=== PATIENT | male | born 1965 | race Caucasian/White ===

== ENCOUNTER 2022-09-29 19:37 | Inpatient (IN) | payer OTHER ==
[2022-09-29] MEDS ORDERED: solu-MEDROL 125 MG, Sterile H2O 10 ml 2 ML IV ONE ×2 (19:53)
[2022-09-29] MEDS ORDERED: DUONEB 0.5-3 MG/3 ml Neb IH ONE ×3 (19:53→23:28)
--- NOTE | 2022-09-29 19:59 | ERPHSYRPT ---
- History of Present Illness Time Seen by Provider: 09/29/22 19:43 Source: patient Exam Limitations: no limitations Physician History: 57 years old male with history of COPD/tobacco abuse recently finished course of antibiotics and steroid presented in the ER with worsening cough and shortness of breath for the last few days. Patient reported his symptoms been going on for last 3 weeks and got worse in last 2 days after finishing antibiotics. Reports cough productive of clear to yellow sputum moderate in amount. Wheezing all over, shortness of breath gets worse with activity and some partial relief with resting. No chest pain but tightness. No fever or chills reported. Patient was oxygen to 86-88% on room air. Placed on 2 L oxygen and currently in mid 90s. Timing/Duration: week(s) (3), gradual onset, worse Severity of Dyspnea-Max: moderate Severity of Dyspnea-Current: moderate Modifying Factors: Improves With: oxygen, rest. Worsens With: coughing, e xertion Associated Symptoms: cough, chest pain/discomfort, productive cough, tightness, No fever Allergies/Adverse Reactions: No Known Drug Allergies Allergy (Unverified 09/29/22 19:43) - Review of Systems Constitutional: No Symptoms Eyes: No Symptoms Ears, Nose, & Throat: No Symptoms Respiratory: Cough, Dyspnea, Wheezing Cardiac: Chest Pain Abdominal/Gastrointestinal: No Symptoms Genitourinary Symptoms: No Symptoms Musculoskeletal: No Symptoms Skin: No Symptoms Neurological: No Symptoms Endocrine: No Symptoms Hematologic/Lymphatic: No Symptoms Immunological/Allergic: No Symptoms - Nursing Vital Signs Nursing Vital Signs: Initial Vital Signs Temperature 96.6 F 09/29/22 19:48 Pulse Rate 89 09/29/22 19:48 Respiratory Rate 30 H 09/29/22 19:48 Blood Pressure 158/94 09/29/22 19:48 O2 Sat by Pulse Oximetry 96 09/29/22 19:48 Pain Scale Pain Intensity 4 - Physical Exam General Appearance: mild distress, alert, anxiety Eye Exam: PERRL/EOMI, eyes nml inspection Ears, Nose, Throat Exam: hearing grossly normal, normal ENT inspection, normal pharynx Neck Exam: normal inspection, non-tender, supple, full range of motion Respiratory Exam: respiratory distress, diminished breath sounds, accessory muscle use, rhonchi, wheezing Cardiovascular/Chest Exam: normal heart sounds, regular rate/rhythm Abdominal/Gastrointestinal Exam: soft Extremity Exam: non-tender, normal range of motion Neurologic Exam: alert, oriented x 3, cooperative Skin Exam: normal color SpO2 Interpretation: O2 applied SpO2: 96 O2 Delivery: Nasal Cannula - Course EKG Interpreted by Me: RATE ([id number]), Sinus Rhythm, NORMAL AXIS, NORMAL INTERVALS, NORMAL QRS, Other (Nonspecific T wave changes) Ordered Tests: Active Orders 24 hr Category Date Time Status Wood Cutter STAT Care 09/29/22 19:54 Active EKG-ER Only STAT Care 09/29/22 19:53 Active IV Insertion STAT Care 09/29/22 19:53 Active Pulse Oximetry (ED) STAT Care 09/29/22 19:53 Active CHEST 1 VIEW (PORTABLE) Stat Exams 09/29/22 19:54 Completed BLOOD CULTURE Stat Lab 09/29/22 20:30 Received CBC W DIFF Stat Lab 09/29/22 20:15 Completed CMP Stat Lab 09/29/22 20:15 Completed Lactic Acid Stat Lab 09/29/22 20:20 Completed MAGNESIUM Stat Lab 09/29/22 20:15 Completed NT PRO BNPII Stat Lab 09/29/22 20:15 Completed TROPONIN Q4H Lab 09/29/22 20:15 Completed TROPONIN Q4H Lab 09/30/22 00:00 Ordered TROPONIN Q4H Lab 09/30/22 04:00 Ordered Respiratory Therapy Assessment DAILY RT 09/29/22 20:04 Active Transfer Order Routine Transfer 09/29/22 Ordered Medication Summary Generic Name Dose Route Start Last Admin Trade Name Freq PRN Reason Stop Dose Admin Albuterol/Ipratropium 3 ml 09/29/22 23:00 09/29/22 23:33 Ipratropium/Albuterol Sulfate 3 Ml Ampul.Neb 10/29/22 22:59 3 ml Q4HRT GHAZAL Administration Discontinued Medications Generic Name Dose Route Start Last Admin Trade Name Freq PRN Reason Stop Dose Admin Albuterol/Ipratropium 3 ml 09/29/22 19:53 09/29/22 19:55 Ipratropium/Albuterol Sulfate 3 Ml Ampul.Neb IH 09/29/22 19:54 3 ml STAT ONE Administration Albuterol/Ipratropium Confirm 09/29/22 19:53 Ipratropium/Albuterol Sulfate 3 Ml Ampul.Neb Administered 09/29/22 19:54 Dose 3 ml IH .STK-MED ONE Aspirin 324 mg 09/29/22 21:16 09/29/22 21:31 Aspirin 81 Mg Tab.Chew PO 09/29/22 21:17 324 mg STAT ONE Administration Methylprednisolone Sodium 0 mg 09/29/22 19:53 09/29/22 20:01 Succinate 125 mg/ Sterile IV 09/29/22 19:54 125 mg Water 2 ml STAT ONE Administration Azithromycin 500 mg in 250 mls @ 250 mls/hr 09/29/22 21:03 09/29/22 22:32 Zithromax 500 Mg/ 250 Ml Nacl Premix IV 09/29/22 22:02 Infused STAT STA Infusion Ceftriaxone Sodium/Dextrose 2 g in 50 mls @ 100 mls/hr 09/29/22 21:03 09/29/22 21:51 Rocephin 2 Gm-D5w 50ml Bag IV 09/29/22 21:32 Infused STAT STA Infusion Ceftriaxone Sodium/Dextrose Confirm 09/29/22 21:05 Rocephin 2 Gm-D5w 50ml Bag Administered 09/29/22 21:06 Dose 2 g in 50 mls @ ud IV .STK-MED ONE Azithromycin Confirm 09/29/22 21:12 Zithromax 500 Mg/ 250 Ml Nacl Premix Administered 09/29/22 21:13 Dose 500 mg in 250 mls @ ud IV .STK-MED ONE Methylprednisolone Sodium Succinate Confirm 09/29/22 20:00 Methylprednis Sod Succ 125 Mg/2 Ml Vial Administered 09/29/22 20:01 Dose 125 mg .ROUTE .STK-MED ONE Morphine Sulfate 4 mg 09/29/22 21:17 09/29/22 21:31 Morphine Sulfate 4 Mg/Ml Injection IV 09/29/22 21:18 4 mg STAT ONE Administration Morphine Sulfate Confirm 09/29/22 21:30 Morphine Sulfate 4 Mg/Ml Injection Administered 09/29/22 21:31 Dose 4 mg .ROUTE .STK-MED ONE Ondansetron HCl 4 mg 09/29/22 21:17 09/29/22 21:31 Ondansetron Hcl 4 Mg/2 Ml Vial IV 09/29/22 21:18 4 mg STAT ONE Administration Ondansetron HCl Confirm 09/29/22 21:30 Ondansetron Hcl 4 Mg/2 Ml Vial Administered 09/29/22 21:31 Dose 4 mg .ROUTE .STK-MED ONE Sterile Water Confirm 09/29/22 20:00 Water For Injection,Sterile 10 Ml Vial Administered 09/29/22 20:01 Dose 10 ml IJ .STK-MED ONE Lab/Rad Data: Laboratory Result Diagrams 09/29/22 20:15 09/29/22 20:15 Laboratory Results 09/29/22 09/29/22 09/29/22 Range/Units 20:30 20:20 20:15 WBC (4.0-10.5) x10^3/uL RBC (4.1-5.6) x10^6/uL Hgb (12.5-18.0) g/dL Hct (42-50) % MCV (78-100) fL MCH (26-32) pg MCHC (32-36) g/dL RDW (11.5-14.0) % Plt Count (150-450) x10^3/uL MPV (7.5-11.0) fL Gran % (36.0-66.0) % Immature Gran % (Auto) (0.00-0.4) % Nucleat RBC Rel Count (0.00-0.1) % Eos # (Auto) (0-0.5) x10^3/uL Immature Gran # (Auto) (0.00-0.03) x10^3u/L Absolute Lymphs (auto) (1.0-4.6) x10^3/uL Absolute Monos (auto) (0.0-1.3) x10^3/uL Absolute Nucleated RBC (0.00-0.01) x10^3u/L Lymphocytes % (24.0-44.0) % Monocytes % (0.0-12.0) % Eosinophils % (0.00-5.0) % Basophils % (0.0-0.4) % Absolute Granulocytes (1.4-6.9) x10^3/uL Basophils # (0-0.4) x10^3/uL Sodium (137-145) mmol/L Potassium (3.5-5.1) mmol/L Chloride (98-107) mmol/L Carbon Dioxide (22-30) mmol/L Anion Gap (5-15) MEQ/L BUN (9-20) mg/dL Creatinine (0.66-1.25) mg/dL Estimated GFR ML/MIN Glucose (74-106) mg/dL Lactic Acid 1.1 (0.4-2.0) Calcium (8.4-10.2) mg/dL Magnesium (1.6-2.3) mg/dL Total Bilirubin (0.2-1.3) mg/dL AST (17-59) U/L ALT (0-50) U/L Alkaline Phosphatase (38-126) U/L Troponin I (0.000-0.034) ng/mL NT-Pro-B Natriuret Pep 153 (<300) pg/mL Serum Total Protein (6.3-8.2) g/dL Albumin (3.5-5.0) g/dL Influenza Type A Ag NEGATIVE (NEGATIVE) Influenza Type B Ag NEGATIVE (NEGATIVE) RSV (PCR) NEGATIVE (NEGATIVE) SARS-CoV-2 (PCR) NEGATIVE (NEGATIVE) 09/29/22 09/29/22 09/29/22 Range/Units 20:15 20:15 20:15 WBC 13.2 H (4.0-10.5) x10^3/uL RBC 4.75 (4.1-5.6) x10^6/uL Hgb 14.9 (12.5-18.0) g/dL Hct 45.3 (42-50) % MCV 95.4 (78-100) fL MCH 31.4 (26-32) pg MCHC 32.9 (32-36) g/dL RDW 12.6 (11.5-14.0) % Plt Count 240 (150-450) x10^3/uL MPV 10.8 (7.5-11.0) fL Gran % 80.3 H (36.0-66.0) % Immature Gran % (Auto) 0.4 (0.00-0.4) % Nucleat RBC Rel Count 0.0 (0.00-0.1) % Eos # (Auto) 0.16 (0-0.5) x10^3/uL Immature Gran # (Auto) 0.05 H (0.00-0.03) x10^3u/L Absolute Lymphs (auto) 1.50 (1.0-4.6) x10^3/uL Absolute Monos (auto) 0.87 (0.0-1.3) x10^3/uL Absolute Nucleated RBC 0.00 (0.00-0.01) x10^3u/L Lymphocytes % 11.3 L (24.0-44.0) % Monocytes % 6.6 (0.0-12.0) % Eosinophils % 1.2 (0.00-5.0) % Basophils % 0.2 (0.0-0.4) % Absolute Granulocytes 10.61 H (1.4-6.9) x10^3/uL Basophils # 0.03 (0-0.4) x10^3/uL Sodium 136 L (137-145) mmol/L Potassium 4.2 (3.5-5.1) mmol/L Chloride 100 (98-107) mmol/L Carbon Dioxide 29 (22-30) mmol/L Anion Gap 11.0 (5-15) MEQ/L BUN 20 (9-20) mg/dL Creatinine 0.97 (0.66-1.25) mg/dL Estimated GFR > 60.0 ML/MIN Glucose 98 (74-106) mg/dL Lactic Acid (0.4-2.0) Calcium 8.6 (8.4-10.2) mg/dL Magnesium 2.0 (1.6-2.3) mg/dL Total Bilirubin 0.60 (0.2-1.3) mg/dL AST 22 (17-59) U/L ALT 15 (0-50) U/L Alkaline Phosphatase 92 (38-126) U/L Troponin I < 0.012 (0.000-0.034) ng/mL NT-Pro-B Natriuret Pep (<300) pg/mL Serum Total Protein 7.4 (6.3-8.2) g/dL Albumin 3.9 (3.5-5.0) g/dL Influenza Type A Ag (NEGATIVE) Influenza Type B Ag (NEGATIVE) RSV (PCR) (NEGATIVE) SARS-CoV-2 (PCR) (NEGATIVE) - Progress Progress: re-examined Air Movement: fair Progress Note: 09/29/22 19:58 57 years old male with history of COPD/tobacco abuse recently finished course of antibiotics and steroid presented in the ER with worsening cough and shortness of breath for the last few days. Patient reported his symptoms been going on for last 3 weeks and got worse in last 2 days after finishing antibiotics. Reports cough productive of clear to yellow sputum moderate in amount. Wheezing all over, shortness of breath gets worse with activity and some partial relief with resting. No chest pain but tightness. No fever or chills reported. We will give DuoNebs, steroid and will do chest pain work-up. Patient symptoms seems to be COPD exacerbation versus pneumonia versus cardiac. 09/29/22 22:32 Patient is feeling much better on reevaluation after neb treatment and steroids. Still on 2 L with saturation around 96%. Chest x-ray showed chronic changes with questionable airspace disease bilaterally versus interstitial lung disease. No focal consolidation. Has a white count of 13, normal lactate and negative initial troponin. EKG did not show any acute ischemic changes. I believe bayron acuña has COPD exacerbation and started on Rocephin and Zithromax. Discussed with Dr. Calles patient is being admitted for observation as I believe patient would benefit with IV steroids/antibiotics and frequent nebs. Blood Culture(s) Obtained: Yes Antibiotics given: Yes Will see patient in: hospital (observation) Counseled pt/family regarding: lab results, diagnosis, rad results Medical Desision Making - Discussion of managment Care discussed with:: hospitalist (Dr. Rosenthal [id number]) Reviewed:: Test results Agreed on:: Treatment plan, place in obs Will see patient: in hospital - Diagnostic Testing Diagnostic test were ordered, analyzed, and reviewed by me: Yes Radiological Interpretation: Interpreted by me, Reviewed by me, Teleradiologist Report - Risk of complications The pt has a high risk of morbidity or mortality based on: Decision regarding h ospitilization or escalation of hosp level of care - Departure Departure Disposition: Observation Clinical Impression: COPD exacerbation Respiratory failure Qualifiers: Chronicity: acute Respiratory failure complication: hypoxia Qualified Code(s): J96.01 - Acute respiratory failure with hypoxia Condition: Stable Critical Care Time: No
[2022-09-29] MEDS ORDERED: solu-MEDROL ONE (20:00)
[2022-09-29] MEDS ORDERED: Sterile H2O 10 ml IJ ONE (20:00)
[2022-09-29 20:52] LABS: Absolute Neutrophil Ct (ANC) 10.61 x10^3/uL (1.4-6.9); BASOPHIL % 0.2 % (0.0-0.4); Basophil (Absolute #) 0.03 x10^3/uL (0-0.4); Eosinophil % 1.2 % (0.00-5.0); Eosinophil (Absolute #) 0.16 x10^3/uL (0-0.5); Hematocrit 45.3 % (42-50); Hemoglobin 14.9 g/dL (12.5-18.0); IMMATURE GRAN # 0.05 x10^3u/L (0.00-0.03); IMMATURE GRAN % 0.4 % (0.00-0.4); Lymphocytes % 11.3 % (24.0-44.0); Mean Cell Volume 95.4 fL (78-100); Mean Corpuscular Hemoglobin 31.4 pg (26-32); Mean Corpuscular Hgb Concent. 32.9 g/dL (32-36); Mean Platelet Volume 10.8 fL (7.5-11.0); Monocyte (Absolute #) 0.87 x10^3/uL (0.0-1.3); Monocytes % 6.6 % (0.0-12.0); Neutrophil % 80.3 % (36.0-66.0); Platelet Count 240 x10^3/uL (150-450); Red Blood Count 4.75 x10^6/uL (4.1-5.6); Red Cell Distribution Width 12.6 % (11.5-14.0); White Blood Count 13.2 x10^3/uL (4.0-10.5)
[2022-09-29 21:03] LABS: ALBUMIN 3.9 g/dL (3.5-5.0); ALKALINE PHOSPHATASE 92 U/L (38-126); BLOOD UREA NITROGEN 20 mg/dL (9-20); CHLORIDE 100 mmol/L (98-107); Calcium 8.6 mg/dL (8.4-10.2); Carbon Dioxide 29 mmol/L (22-30); Creatinine 1 0.97 mg/dL (0.66-1.25); EST GLOMERULAR FILTRATION RATE > 60.0 ML/MIN; Glucose 98 mg/dL (74-106); Potassium 4.2 mmol/L (3.5-5.1); SGOT/AST 22 U/L (17-59); SGPT/ALT 15 U/L (0-50); SODIUM 136 mmol/L (137-145); Total Protein 7.4 g/dL (6.3-8.2)
[2022-09-29] MEDS ORDERED: Zithromax 500 MG/ 250 ML NaCl Premix 500 MG/250 ML IVPB IV STA (21:03)
[2022-09-29] MEDS ORDERED: ROCEPHIN 2 Gm-D5w 50ML BAG** 2 G/50 ML IVPB IV STA (21:03)
[2022-09-29] MEDS ORDERED: ROCEPHIN 2 Gm-D5w 50ML BAG** 2 G/50 ML IVPB IV ONE (21:05)
[2022-09-29] MEDS ORDERED: Zithromax 500 MG/ 250 ML NaCl Premix 500 MG/250 ML IVPB IV ONE (21:12)
[2022-09-29] MEDS ORDERED: BABY ASPIRIN 81 MG CHEW PO ONE (21:16)
[2022-09-29] MEDS ORDERED: Zofran 4 MG/2 ML VIAL IV ONE (21:17)
[2022-09-29] MEDS ORDERED: MORPHINE SULFATE 4 MG INJ IV ONE (21:17)
[2022-09-29] MEDS ORDERED: MORPHINE SULFATE 4 MG INJ ONE (21:30)
[2022-09-29] MEDS ORDERED: Zofran 4 MG/2 ML VIAL ONE (21:30)
[2022-09-29 21:35] LABS: INFLUENZA A NEGATIVE (NEGATIVE); INFLUENZA B NEGATIVE (NEGATIVE); RESPIRATORY SYNCTIAL VIRUS NEGATIVE (NEGATIVE); SARS-CoV-2 Xpert Express NEGATIVE (NEGATIVE)
--- NOTE | 2022-09-29 21:52 | XRAY ---
CLINICAL HISTORY:Shortness of breath; COMPARISON:None; TECHNIQUES:Chest X-ray - Portable frontal 1 view; FINDINGS: Coarse interstitial markings are seen in bilateral lower zones and in the periphery of both lungs with shaggy cardiac and right hemidiaphragm margins, raising the possibility of interstitial lung disease. Mild prominence of interstitial markings are seen in bilateral apices with an ill-defined haziness in the left upper zone. A tube is seen projected over the left hemithorax. Normal configuration of the mediastinum. The josh are normal in size and position. The cardiac size is normal. The bony thorax is unremarkable. The costophrenic and cardiophrenic angles are clear. IMPRESSION: Above findings suggest the possibility of interstitial lung disease. Further evaluation with HRCT is recommended. Electronically Signed by: Marla Craven MD. (09/29/2022 20:47:27 [employer];)
[2022-09-29] MEDS ORDERED: DUONEB 0.5-3 MG/3 ml Neb IH SCH (23:00)
[2022-09-29] MEDS ORDERED: Zofran 4 MG/2 ML VIAL IV PRN (23:41)
[2022-09-30] MEDS ORDERED: solu-MEDROL ONE ×3 (00:27→12:31)
[2022-09-30] MEDS: solu-MEDROL 60 MG, Sterile H2O 10 ml 2 ML IV SCH ×6 (00:29→12:37)
[2022-09-30] MEDS ORDERED: DUONEB 0.5-3 MG/3 ml Neb IH SCH (01:00)
[2022-09-30] MEDS ORDERED: NICODERM CQ 14 MG TOP SCH (02:15)
[2022-09-30] MEDS: DUONEB 0.5-3 MG/3 ml Neb IH SCH ×6 (03:22→23:04)
[2022-09-30] MEDS: MORPHINE SULFATE 2 MG INJ IV PRN ×5 (04:23→22:35)
[2022-09-30] MEDS ORDERED: Sterile H2O 10 ml IJ ONE (05:29)
[2022-09-30 05:35] LABS: Absolute Neutrophil Ct (ANC) 7.41 x10^3/uL (1.4-6.9); Basophil (Absolute #) 0 x10^3/uL (0-0.4); Eosinophil (Absolute #) 0 x10^3/uL (0-0.5); Hematocrit 44.6 % (42-50); Hemoglobin 14.6 g/dL (12.5-18.0); IMMATURE GRAN # 0.03 x10^3u/L (0.00-0.03); IMMATURE GRAN % 0.4 % (0.00-0.4); Lymphocytes % 6.3 % (24.0-44.0); Mean Cell Volume 95.9 fL (78-100); Mean Corpuscular Hemoglobin 31.4 pg (26-32); Mean Corpuscular Hgb Concent. 32.7 g/dL (32-36); Mean Platelet Volume 10.9 fL (7.5-11.0); Monocyte (Absolute #) 0.03 x10^3/uL (0.0-1.3); Monocytes % 0.4 % (0.0-12.0); Neutrophil % 92.9 % (36.0-66.0); Platelet Count 228 x10^3/uL (150-450); Red Blood Count 4.65 x10^6/uL (4.1-5.6); Red Cell Distribution Width 12.8 % (11.5-14.0)
[2022-09-30 05:49] LABS: ALBUMIN 3.9 g/dL (3.5-5.0); ALKALINE PHOSPHATASE 84 U/L (38-126); ANION GAP 16.5 MEQ/L (5-15); BLOOD UREA NITROGEN 16 mg/dL (9-20); CHLORIDE 98 mmol/L (98-107); Calcium 8.5 mg/dL (8.4-10.2); Carbon Dioxide 25 mmol/L (22-30); Creatinine 1 0.87 mg/dL (0.66-1.25); EST GLOMERULAR FILTRATION RATE > 60.0 ML/MIN; Glucose 211 mg/dL (74-106); Potassium 4.3 mmol/L (3.5-5.1); SGOT/AST 21 U/L (17-59); SGPT/ALT 20 U/L (0-50); SODIUM 136 mmol/L (137-145); Total Protein 7.5 g/dL (6.3-8.2)
[2022-09-30 06:12] LABS: Slide Review 1 YES
[2022-09-30] MEDS ORDERED: IMODIUM 2 MG PO PRN (07:17)
[2022-09-30] MEDS: PROTONIX 40 MG IV IV SCH (09:24)
[2022-09-30] MEDS: Zocor 10MG PO SCH (09:25)
[2022-09-30] MEDS ORDERED: NON-FORMULARY ITEM (Atorvastatin Calcium 10 MG Tablet) PO SCH (10:00)
[2022-09-30] MEDS ORDERED: Zestril 10 MG PO SCH (10:00)
[2022-09-30] MEDS: TYLENOL 325 MG PO PRN (11:50)
--- NOTE | 2022-09-30 17:13 | PCM.HP ---
History of Present Illness - Chief Complaint Chief Complaint: COPD exacerbation, acute hypoxic respiratory failure Date: 09/30/22 History of Present Illness: is a 57 year old male with h/o COPD and tobacco abuse, who presents with cough and dyspnea. He was recently admitted to another hospital for pneumonia, and was sent home on steroids and antibiotics. He completed those about 3 days prior to admission. Initially felt better, but worsened again when medications completed. Denies fevers or worsened cough, but complaining of worsening dyspnea and bilateral leg weakness. He has no further sick contacts. - Review of Systems Constitutional: Fatigue, Weakness, No Fever, No Chills Eyes: No Symptoms Ears, Nose, & Throat: No Symptoms Respiratory: Short Of Breath, Wheezing, No Cough Cardiac: No Symptoms Abdominal/Gastrointestinal: No Symptoms Genitourinary Symptoms: No Symptoms Musculoskeletal: No Symptoms Skin: No Symptoms Neurological: Other (diffuse weakness) Psychological: No Symptoms All Other Systems: Reviewed and Negative Medications & Allergies Home Medications: Home Medication List Atorvastatin Calcium [Lipitor] 10 mg PO DAILY 09/29/22 [History Confirmed 09/29/22] Haloperidol [Haldol] 1 mg PO DAILY 09/29/22 [History Confirmed 09/29/22] Lisinopril 10 mg [Zestril 10 MG] 10 mg PO DAILY 09/29/22 [History Confirmed 09/29/22] Loperamide HCl 2 mg [Imodium 2 mg] 2 mg PO DAILY PRN PRN 09/29/22 [History Confirmed 09/29/22] SUMAtriptan succinate [Imitrex 50 mg] 50 mg PO DAILY PRN PRN 09/29/22 [History Confirmed 09/29/22] Tiotropium Ucon Inhaler [Spiriva 18 Mcg/Cap Inhaler] 1 puff IH DAILY 09/29/22 [History Confirmed 09/29/22] Allergies/Adverse Reactions: Allergies Allergy/AdvReac Type Severity Reaction Status Date / Time No Known Drug Allergies Allergy Unverified 09/29/22 19:43 - Past Medical History Past Medical History: Yes Neurological History: Migraines ENT History: No Pertinent History Cardiac History: High Cholesterol, Hypertension Respiratory History: Asthma, COPD Endocrine Medical History: No Pertinent History Musculoskelatal History: No Pertinent History GI Medical History: GERD, Irritable Bowel History: No Pertinent History Pyscho-Social History: Other Male Reproductive Disorders: No Pertinent History Comment: schizoprenia - Past Surgical History Past Surgical History: Yes Neuro Surgical History: No Pertinent History Cardiac History: No Pertinent History Respiratory Surgery: No Pertinent History GI Surgical History: No Pertinent History Genitourinary Surgical Hx: No Pertinent History Musculskeletal Surgical Hx: Orthopedic Surgery Male Surgical History: No Pertinent History Other Surgical History: herniated disc. L 5 - Social History Smoking Status: Heavy tobacco smoker How long have you smoked: 51 years Exposure to second hand smoke: No Alcohol: None Drug Use: marijuana Significant Family History: no pertinent family hx - Physical Exam Vital Signs: Vital Signs - 24 hr Temp Pulse Resp BP Pulse Ox 09/30/22 15:56 97.8 F 84 16 145/83 94 L 09/30/22 15:44 84 16 92 L 09/30/22 12:00 98.3 F 82 16 166/77 90 L 09/30/22 10:48 89 16 91 L 09/30/22 07:40 98.0 F 79 20 153/93 90 L 09/30/22 06:54 80 16 87 L 09/30/22 04:00 97.7 F 74 22 136/89 93 L 09/30/22 03:22 82 20 92 L 09/29/22 23:41 96 09/29/22 23:33 77 20 92 L 09/29/22 23:00 98.8 F 72 24 153/92 95 09/29/22 22:07 82 16 133/100 97 09/29/22 20:01 97 09/29/22 19:55 86 20 97 09/29/22 19:48 96.6 F 89 30 H 158/94 88 L General Appearance: no apparent distress, alert Neurologic Exam: alert, oriented x 3, cooperative Respiratory Exam: other (no wheezing, but prolonged expiratory phase, and on 2L oxygen) Cardiovascular Exam: regular rate/rhythm, No murmur, No edema Gastrointestinal/Abdomen Exam: soft, normal bowel sounds, other (obese) Skin Exam: normal color Results - Labs Lab/Micro Results: Lab Results-Last 24 Hours 09/29/22 09/29/22 09/29/22 Range/Units 20:15 20:15 20:15 WBC 13.2 H (4.0-10.5) x10^3/uL RBC 4.75 (4.1-5.6) x10^6/uL Hgb 14.9 (12.5-18.0) g/dL Hct 45.3 (42-50) % MCV 95.4 (78-100) fL MCH 31.4 (26-32) pg MCHC 32.9 (32-36) g/dL RDW 12.6 (11.5-14.0) % Plt Count 240 (150-450) x10^3/uL MPV 10.8 (7.5-11.0) fL Gran % 80.3 H (36.0-66.0) % Immature Gran % (Auto) 0.4 (0.00-0.4) % Nucleat RBC Rel Count 0.0 (0.00-0.1) % Eos # (Auto) 0.16 (0-0.5) x10^3/uL Immature Gran # (Auto) 0.05 H (0.00-0.03) x10^3u/L Absolute Lymphs (auto) 1.50 (1.0-4.6) x10^3/uL Absolute Monos (auto) 0.87 (0.0-1.3) x10^3/uL Absolute Nucleated RBC 0.00 (0.00-0.01) x10^3u/L Lymphocytes % 11.3 L (24.0-44.0) % Monocytes % 6.6 (0.0-12.0) % Eosinophils % 1.2 (0.00-5.0) % Basophils % 0.2 (0.0-0.4) % Absolute Granulocytes 10.61 H (1.4-6.9) x10^3/uL Basophils # 0.03 (0-0.4) x10^3/uL Sodium 136 L (137-145) mmol/L Potassium 4.2 (3.5-5.1) mmol/L Chloride 100 (98-107) mmol/L Carbon Dioxide 29 (22-30) mmol/L Anion Gap 11.0 (5-15) MEQ/L BUN 20 (9-20) mg/dL Creatinine 0.97 (0.66-1.25) mg/dL Estimated GFR > 60.0 ML/MIN Glucose 98 (74-106) mg/dL Lactic Acid (0.4-2.0) Calcium 8.6 (8.4-10.2) mg/dL Magnesium 2.0 (1.6-2.3) mg/dL Total Bilirubin 0.60 (0.2-1.3) mg/dL AST 22 (17-59) U/L ALT 15 (0-50) U/L Alkaline Phosphatase 92 (38-126) U/L Troponin I < 0.012 (0.000-0.034) ng/mL NT-Pro-B Natriuret Pep (<300) pg/mL Serum Total Protein 7.4 (6.3-8.2) g/dL Albumin 3.9 (3.5-5.0) g/dL Influenza Type A Ag (NEGATIVE) Influenza Type B Ag (NEGATIVE) RSV (PCR) (NEGATIVE) SARS-CoV-2 (PCR) (NEGATIVE) Slides for Path Review 09/29/22 09/29/22 09/29/22 Range/Units 20:15 20:20 20:30 WBC (4.0-10.5) x10^3/uL RBC (4.1-5.6) x10^6/uL Hgb (12.5-18.0) g/dL Hct (42-50) % MCV (78-100) fL MCH (26-32) pg MCHC (32-36) g/dL RDW (11.5-14.0) % Plt Count (150-450) x10^3/uL MPV (7.5-11.0) fL Gran % (36.0-66.0) % Immature Gran % (Auto) (0.00-0.4) % Nucleat RBC Rel Count (0.00-0.1) % Eos # (Auto) (0-0.5) x10^3/uL Immature Gran # (Auto) (0.00-0.03) x10^3u/L Absolute Lymphs (auto) (1.0-4.6) x10^3/uL Absolute Monos (auto) (0.0-1.3) x10^3/uL Absolute Nucleated RBC (0.00-0.01) x10^3u/L Lymphocytes % (24.0-44.0) % Monocytes % (0.0-12.0) % Eosinophils % (0.00-5.0) % Basophils % (0.0-0.4) % Absolute Granulocytes (1.4-6.9) x10^3/uL Basophils # (0-0.4) x10^3/uL Sodium (137-145) mmol/L Potassium (3.5-5.1) mmol/L Chloride (98-107) mmol/L Carbon Dioxide (22-30) mmol/L Anion Gap (5-15) MEQ/L BUN (9-20) mg/dL Creatinine (0.66-1.25) mg/dL Estimated GFR ML/MIN Glucose (74-106) mg/dL Lactic Acid 1.1 (0.4-2.0) Calcium (8.4-10.2) mg/dL Magnesium (1.6-2.3) mg/dL Total Bilirubin (0.2-1.3) mg/dL AST (17-59) U/L ALT (0-50) U/L Alkaline Phosphatase (38-126) U/L Troponin I (0.000-0.034) ng/mL NT-Pro-B Natriuret Pep 153 (<300) pg/mL Serum Total Protein (6.3-8.2) g/dL Albumin (3.5-5.0) g/dL Influenza Type A Ag NEGATIVE (NEGATIVE) Influenza Type B Ag NEGATIVE (NEGATIVE) RSV (PCR) NEGATIVE (NEGATIVE) SARS-CoV-2 (PCR) NEGATIVE (NEGATIVE) Slides for Path Review 09/30/22 09/30/22 09/30/22 Range/Units 00:42 04:45 04:45 WBC 8.0 (4.0-10.5) x10^3/uL RBC 4.65 (4.1-5.6) x10^6/uL Hgb 14.6 (12.5-18.0) g/dL Hct 44.6 (42-50) % MCV 95.9 (78-100) fL MCH 31.4 (26-32) pg MCHC 32.7 (32-36) g/dL RDW 12.8 (11.5-14.0) % Plt Count 228 (150-450) x10^3/uL MPV 10.9 (7.5-11.0) fL Gran % 92.9 H (36.0-66.0) % Immature Gran % (Auto) 0.4 (0.00-0.4) % Nucleat RBC Rel Count 0.0 (0.00-0.1) % Eos # (Auto) 0 (0-0.5) x10^3/uL Immature Gran # (Auto) 0.03 (0.00-0.03) x10^3u/L Absolute Lymphs (auto) 0.50 L (1.0-4.6) x10^3/uL Absolute Monos (auto) 0.03 (0.0-1.3) x10^3/uL Absolute Nucleated RBC 0.00 (0.00-0.01) x10^3u/L Lymphocytes % 6.3 L (24.0-44.0) % Monocytes % 0.4 (0.0-12.0) % Eosinophils % 0.0 (0.00-5.0) % Basophils % 0.0 (0.0-0.4) % Absolute Granulocytes 7.41 H (1.4-6.9) x10^3/uL Basophils # 0 (0-0.4) x10^3/uL Sodium (137-145) mmol/L Potassium (3.5-5.1) mmol/L Chloride (98-107) mmol/L Carbon Dioxide (22-30) mmol/L Anion Gap (5-15) MEQ/L BUN (9-20) mg/dL Creatinine (0.66-1.25) mg/dL Estimated GFR ML/MIN Glucose (74-106) mg/dL Lactic Acid (0.4-2.0) Calcium (8.4-10.2) mg/dL Magnesium (1.6-2.3) mg/dL Total Bilirubin (0.2-1.3) mg/dL AST (17-59) U/L ALT (0-50) U/L Alkaline Phosphatase (38-126) U/L Troponin I < 0.012 < 0.012 (0.000-0.034) ng/mL NT-Pro-B Natriuret Pep (<300) pg/mL Serum Total Protein (6.3-8.2) g/dL Albumin (3.5-5.0) g/dL Influenza Type A Ag (NEGATIVE) Influenza Type B Ag (NEGATIVE) RSV (PCR) (NEGATIVE) SARS-CoV-2 (PCR) (NEGATIVE) Slides for Path Review YES 09/30/22 Range/Units 04:45 WBC (4.0-10.5) x10^3/uL RBC (4.1-5.6) x10^6/uL Hgb (12.5-18.0) g/dL Hct (42-50) % MCV (78-100) fL MCH (26-32) pg MCHC (32-36) g/dL RDW (11.5-14.0) % Plt Count (150-450) x10^3/uL MPV (7.5-11.0) fL Gran % (36.0-66.0) % Immature Gran % (Auto) (0.00-0.4) % Nucleat RBC Rel Count (0.00-0.1) % Eos # (Auto) (0-0.5) x10^3/uL Immature Gran # (Auto) (0.00-0.03) x10^3u/L Absolute Lymphs (auto) (1.0-4.6) x10^3/uL Absolute Monos (auto) (0.0-1.3) x10^3/uL Absolute Nucleated RBC (0.00-0.01) x10^3u/L Lymphocytes % (24.0-44.0) % Monocytes % (0.0-12.0) % Eosinophils % (0.00-5.0) % Basophils % (0.0-0.4) % Absolute Granulocytes (1.4-6.9) x10^3/uL Basophils # (0-0.4) x10^3/uL Sodium 136 L (137-145) mmol/L Potassium 4.3 (3.5-5.1) mmol/L Chloride 98 (98-107) mmol/L Carbon Dioxide 25 (22-30) mmol/L Anion Gap 16.5 H (5-15) MEQ/L BUN 16 (9-20) mg/dL Creatinine 0.87 (0.66-1.25) mg/dL Estimated GFR > 60.0 ML/MIN Glucose 211 H (74-106) mg/dL Lactic Acid (0.4-2.0) Calcium 8.5 (8.4-10.2) mg/dL Magnesium (1.6-2.3) mg/dL Total Bilirubin 0.40 (0.2-1.3) mg/dL AST 21 (17-59) U/L ALT 20 (0-50) U/L Alkaline Phosphatase 84 (38-126) U/L Troponin I (0.000-0.034) ng/mL NT-Pro-B Natriuret Pep (<300) pg/mL Serum Total Protein 7.5 (6.3-8.2) g/dL Albumin 3.9 (3.5-5.0) g/dL Influenza Type A Ag (NEGATIVE) Influenza Type B Ag (NEGATIVE) RSV (PCR) (NEGATIVE) SARS-CoV-2 (PCR) (NEGATIVE) Slides for Path Review - Radiology Impressions Radiology Exams & Impressions: Radiology Procedures Category Date Time Status CHEST 1 VIEW (PORTABLE) Stat Exams 09/29/22 19:54 Completed Bibasilar interstital infiltrates, no consolidation. (Images reviewed) - Other Procedures and Tests Respiratory Therapy 09/29/22 20:04 Respiratory Therapy Assessment DAILY 09/29/22 23:27 Oxygen Nasal Cannula 2 lpm Assessment/Plan (1) COPD exacerbation Current Visit: Yes Status: Acute Assessment & Plan: After recent pneumonia. But no cough or change in sputum production to indicate need for antibiotics, and has already completed course for antibiotics for pneumonia without new infiltrate on CXR. Appears mostly just exacerbation of his underlying COPD; I suspect he needed prolonged steroids due to his underlying lung disease. - d/c rocephin, aziithromycin due to no pneumonia or purulent sputum - decrease SoluMedrol to 60 mg daily - PRN DuoNeb q4h - wean oxygen to maintain SpO2 91-94% Code(s): J44.1 - CHRONIC OBSTRUCTIVE PULMONARY DISEASE W (ACUTE) EXACERBATION (2) Respiratory failure Current Visit: Yes Status: Acute Qualifiers: Chronicity: chronic Respiratory failure complication: hypoxia Qualified Code(s): J96.11 - Chronic respiratory failure with hypoxia Assessment & Plan: Secondary to COPD. - wean O2 to maintain SpO2 91-94% Code(s): J96.90 - RESPIRATORY FAILURE, UNSP, UNSP W HYPOXIA OR HYPERCAPNIA (3) Hypertension Current Visit: Yes Status: Acute Qualifiers: Hypertension type: primary hypertension Qualified Code(s): I10 - Essential (primary) hypertension Assessment & Plan: BP controlled - continue lisinopril 10 Code(s): I10 - ESSENTIAL (PRIMARY) HYPERTENSION (4) Tobacco dependence Current Visit: Yes Status: Acute Assessment & Plan: - start nicotine 14 mg patch Code(s): F17.200 - NICOTINE DEPENDENCE, UNSPECIFIED, UNCOMPLICATED Telemedicine Encounter - Telemedicine Encounter Telemedicine Encounter: The entirety of this encounter was performed via Telemedicine"
[2022-09-30] MEDS: Spiriva 18 Mcg/Cap Inhaler IH SCH ×2 (18:53→18:54)
[2022-09-30] MEDS: NICODERM CQ 14 MG TOP SCH (21:55)
[2022-09-30] MEDS ORDERED: ROCEPHIN 1 Gm-D5w 50 ml Bag** 1 G/50 ML IVPB IV SCH (22:00)
[2022-09-30] MEDS ORDERED: Zithromax 500 MG/ 250 ML NaCl Premix 500 MG/250 ML IVPB IV SCH (22:00)
[2022-10-01] MEDS: DUONEB 0.5-3 MG/3 ml Neb IH SCH ×3 (03:27→10:59)
[2022-10-01] MEDS: MORPHINE SULFATE 2 MG INJ IV PRN ×5 (03:49→22:07)
[2022-10-01 05:07] LABS: Hematocrit 44.6 % (42-50); Hemoglobin 14.4 g/dL (12.5-18.0); Mean Corpuscular Hemoglobin 31.6 pg (26-32); Mean Corpuscular Hgb Concent. 32.3 g/dL (32-36); Mean Platelet Volume 10.9 fL (7.5-11.0); Platelet Count 242 x10^3/uL (150-450); Red Blood Count 4.55 x10^6/uL (4.1-5.6); Red Cell Distribution Width 13.1 % (11.5-14.0); White Blood Count 19.9 x10^3/uL (4.0-10.5)
[2022-10-01 05:18] LABS: ANION GAP 13.1 MEQ/L (5-15); BLOOD UREA NITROGEN 26 mg/dL (9-20); CHLORIDE 97 mmol/L (98-107); Calcium 8.7 mg/dL (8.4-10.2); Carbon Dioxide 33 mmol/L (22-30); Creatinine 1 0.92 mg/dL (0.66-1.25); EST GLOMERULAR FILTRATION RATE > 60.0 ML/MIN; Glucose 128 mg/dL (74-106); Potassium 5.3 mmol/L (3.5-5.1); SODIUM 138 mmol/L (137-145)
[2022-10-01] MEDS: Spiriva 18 Mcg/Cap Inhaler IH SCH (07:22)
[2022-10-01] MEDS: solu-MEDROL 60 MG, Sterile H2O 10 ml 2 ML IV SCH ×2 (08:20)
[2022-10-01] MEDS: PROTONIX 40 MG IV IV SCH (08:27)
[2022-10-01] MEDS ORDERED: VELTASSA PO ONE (09:00)
[2022-10-01] MEDS: Zocor 10MG PO SCH (09:58)
--- NOTE | 2022-10-01 12:26 | PCM.NOTE ---
Date and Time: 10/01/22 1205 Subjective Assessment: No acute events overnight. Feeling better today; still has cough, but feels like breathing more easily. No wheezing. Remains on 2L oxygen; states he is not on oxygen at home. He states he still feels weak, unable to get up. But told rn case management he does not want to go to a facility for any rehab. Denies fevers, chest pain, or nausea. - Review of Systems Constitutional: No Fever, No Chills Respiratory: Cough, Short Of Breath, No Wheezing Cardiac: No Chest Pain Abdominal/Gastrointestinal: No Symptoms All Other Systems: Reviewed and Negative Objective Exam General Appearance: no apparent distress Neurologic Exam: alert, oriented x 3, normal mood/affect Skin Exam: normal color, No rash Respiratory Exam: other (No wheezing, resolution of prior prolonged expiratory phase. Able to speak in full sentences today.) Cardiovascular Exam: regular rate/rhythm, No murmur, No edema Gastrointestinal/Abdomen Exam: soft, No tenderness, No distention OBJECTIVE DATA Vital Signs: Vital Signs - 24 hr Temp Pulse Resp BP Pulse Ox 10/01/22 11:48 98.3 F 84 18 134/82 90 L 10/01/22 11:01 84 16 92 L 10/01/22 07:25 80 18 93 L 10/01/22 06:57 98.4 F 82 18 128/83 93 L 10/01/22 04:00 97.5 F 84 16 136/83 93 L 10/01/22 03:27 94 H 20 92 L 10/01/22 00:00 97.8 F 94 H 20 143/83 91 L 09/30/22 23:04 95 H 20 92 L 09/30/22 19:57 98.6 F 103 H 20 145/87 91 L 09/30/22 19:38 91 H 22 94 L 09/30/22 15:56 97.8 F 84 16 145/83 94 L 09/30/22 15:44 84 16 92 L Pain Assessment - Last Documented Pain Intensity 10 Pain Scale Used 0-10 Pain Scale Intake and Output: Intake & Output 09/29/22 09/30/22 10/01/22 10/02/22 11:59 11:59 11:59 11:59 Intake Total 2040 2100 Output Total 650 1250 Balance 1390 850 Weight 92.7 kg 92.6 kg Lab Results: Lab Results-Last 24 Hours 10/01/22 10/01/22 Range/Units 04:35 04:35 WBC 19.9 H (4.0-10.5) x10^3/uL RBC 4.55 (4.1-5.6) x10^6/uL Hgb 14.4 (12.5-18.0) g/dL Hct 44.6 (42-50) % MCV 98.0 (78-100) fL MCH 31.6 (26-32) pg MCHC 32.3 (32-36) g/dL RDW 13.1 (11.5-14.0) % Plt Count 242 (150-450) x10^3/uL MPV 10.9 (7.5-11.0) fL Sodium 138 (137-145) mmol/L Potassium 5.3 H D (3.5-5.1) mmol/L Chloride 97 L (98-107) mmol/L Carbon Dioxide 33 H (22-30) mmol/L Anion Gap 13.1 (5-15) MEQ/L BUN 26 H (9-20) mg/dL Creatinine 0.92 (0.66-1.25) mg/dL Estimated GFR > 60.0 ML/MIN Glucose 128 H (74-106) mg/dL Calcium 8.7 (8.4-10.2) mg/dL Radiology Exams: Radiology Procedures Category Date Time Status CHEST 1 VIEW (PORTABLE) Stat Exams 09/29/22 19:54 Completed Multi-Disciplinary Progress Notes: Multi-Disciplinary Progress Notes 10/01/22 10:00 Case Management Note by Emily Donis S/Sharif PATIENT- HE CONTINUES TO PLAN TO DC HOME TO HIS PLF AT TIME OF DC. HE WAS OFFERED AND REHAB STAY AND [facility]- PATIENT CONTINUES TO DECLINE BOTH. PATIENT CURRENTLY ON OXYGEN OF WHICH HE DOES NOT WEAR AT HOME. WILL SET UP IF NEEDED AT TIME OF DC Initialized on 10/01/22 10:00 - END OF NOTE Assessment/Plan (1) COPD exacerbation Current Visit: Yes Status: Acute Assessment & Plan: 57 y/o M with h/o COPD, HTN, tobacco dependence, here with COPD exacerbation. ## COPD exacerbation - with acute hypoxic respiratory failure. No pneumonia currently on CXR, and no purulent sputum. Recently completed course of antibiotics for pneumonia, and I suspect just needed prolonged steroid taper because of his severe COPD. Already has better air movement on exam today. - continue SoluMedrol 60 mg IV daily - cont PRN DuoNeb q4h - wean oxygen to maintain SpO2 91-94% ## Hyperkalemia - hold lisinopril - give Veltassa 16.8 g PO x1 - repeat BMP in AM ## Leg weakness - suspect due more to overall deconditioning after frequent hospitalizations. Concerning that patient currently declining rehab facility, as that might best serve him. - PT/OT evaluate & treat - pending rehab evaluation, will discuss recommendations for continued therapy after discharge ([facility] home health) ## Hypertension - BP controlled - holding lisinopril as above for hyperkalemia ## Tobacco dependence - continue nicotine patch. Code Status: Full Code Prophylaxis: start Lovenox 40 Dispo: pending PT/OT eval Entirety of encounter took place via telemedicine, to which patient consented. Code(s): J44.1 - CHRONIC OBSTRUCTIVE PULMONARY DISEASE W (ACUTE) EXACERBATION (2) Respiratory failure Current Visit: Yes Status: Acute Qualifiers: Chronicity: chronic Respiratory failure complication: hypoxia Qualified Code(s): J96.11 - Chronic respiratory failure with hypoxia Code(s): J96.90 - RESPIRATORY FAILURE, UNSP, UNSP W HYPOXIA OR HYPERCAPNIA (3) Hypertension Current Visit: Yes Status: Acute Qualifiers: Hypertension type: primary hypertension Qualified Code(s): I10 - Essential (primary) hypertension Code(s): I10 - ESSENTIAL (PRIMARY) HYPERTENSION (4) Tobacco dependence Current Visit: Yes Status: Acute Code(s): F17.200 - NICOTINE DEPENDENCE, UNSPECIFIED, UNCOMPLICATED
[2022-10-01] MEDS: DUONEB 0.5-3 MG/3 ml Neb IH PRN (15:53)
[2022-10-01] MEDS: TYLENOL 325 MG PO PRN (16:17)
[2022-10-01] MEDS: NICODERM CQ 14 MG TOP SCH (22:00)
[2022-10-02] MEDS: TYLENOL 325 MG PO PRN (01:12)
[2022-10-02] MEDS: MORPHINE SULFATE 2 MG INJ IV PRN ×4 (02:23→22:14)
[2022-10-02] MEDS: Spiriva 18 Mcg/Cap Inhaler IH SCH (05:07)
[2022-10-02] MEDS: DUONEB 0.5-3 MG/3 ml Neb IH PRN ×3 (05:07→19:14)
[2022-10-02 05:21] LABS: Hematocrit 45.3 % (42-50); Hemoglobin 14.1 g/dL (12.5-18.0); Mean Cell Volume 100.2 fL (78-100); Mean Corpuscular Hemoglobin 31.2 pg (26-32); Mean Corpuscular Hgb Concent. 31.1 g/dL (32-36); Mean Platelet Volume 10.9 fL (7.5-11.0); Platelet Count 215 x10^3/uL (150-450); Red Blood Count 4.52 x10^6/uL (4.1-5.6); Red Cell Distribution Width 12.9 % (11.5-14.0); White Blood Count 16.6 x10^3/uL (4.0-10.5)
[2022-10-02 05:33] LABS: ANION GAP 12.7 MEQ/L (5-15); BLOOD UREA NITROGEN 30 mg/dL (9-20); CHLORIDE 92 mmol/L (98-107); Calcium 8.6 mg/dL (8.4-10.2); Carbon Dioxide 37 mmol/L (22-30); EST GLOMERULAR FILTRATION RATE > 60.0 ML/MIN; Glucose 106 mg/dL (74-106); Potassium 5.5 mmol/L (3.5-5.1); SODIUM 136 mmol/L (137-145)
[2022-10-02] MEDS: Zocor 10MG PO SCH (08:32)
[2022-10-02] MEDS: PROTONIX 40 MG IV IV SCH (08:33)
[2022-10-02] MEDS: solu-MEDROL 60 MG, Sterile H2O 10 ml 2 ML IV SCH ×2 (08:33)
[2022-10-02] MEDS ORDERED: Kayexylate 15 GM/60 ML PO ONE (10:16)
--- NOTE | 2022-10-02 16:50 | PCM.NOTE ---
Date and Time: 10/02/22 1645 Subjective Assessment: No acute events overnight. Patient was able to walk 140 ft with therapy yesterday, with min assist to contact-guard assist. However, he had frequent stops for hypoxia, having to turn oxygen up to 4 L. He feels like his breathing is improved, but not yet back to his baseline. Patient was considering assisted, but limited options available for him. However, he has assistance at his home. - Review of Systems Respiratory: Cough, Short Of Breath, Wheezing All Other Systems: Reviewed and Negative Objective Exam General Appearance: no apparent distress Neurologic Exam: alert, oriented x 3, normal mood/affect Skin Exam: No rash Eye Exam: eyes nml inspection Neck Exam: normal inspection Respiratory Exam: normal breath sounds, other (On 3 L oxygen by nasal cannula), No prolonged expirations, No wheezing Cardiovascular Exam: regular rate/rhythm, No murmur, No edema Gastrointestinal/Abdomen Exam: soft, No tenderness, No distention OBJECTIVE DATA Vital Signs: Vital Signs - 24 hr Temp Pulse Resp BP Pulse Ox 10/02/22 16:00 97.3 F 69 20 151/90 94 L 10/02/22 11:54 97.5 F 99 H 18 160/95 90 L 10/02/22 10:54 77 22 91 L 10/02/22 07:22 97.1 F 77 16 168/91 95 10/02/22 05:07 75 18 95 10/02/22 04:00 97.2 F 87 17 154/89 95 10/01/22 23:56 97.3 F 90 24 159/87 94 L 10/01/22 20:00 99.1 F 91 H 24 131/80 93 L 10/01/22 19:22 87 20 92 L Pain Assessment - Last Documented Pain Intensity 6 Pain Scale Used 0-10 Pain Scale Intake and Output: Intake & Output 09/30/22 10/01/22 10/02/22 10/03/22 11:59 11:59 11:59 11:59 Intake Total 2040 2100 2740 360 Output Total 650 1250 3350 Balance 1390 850 -610 360 Weight 92.7 kg 92.6 kg 92.4 kg Lab Results: Lab Results-Last 24 Hours 10/02/22 10/02/22 Range/Units 04:43 04:43 WBC 16.6 H (4.0-10.5) x10^3/uL RBC 4.52 (4.1-5.6) x10^6/uL Hgb 14.1 (12.5-18.0) g/dL Hct 45.3 (42-50) % MCV 100.2 H (78-100) fL MCH 31.2 (26-32) pg MCHC 31.1 L (32-36) g/dL RDW 12.9 (11.5-14.0) % Plt Count 215 (150-450) x10^3/uL MPV 10.9 (7.5-11.0) fL Sodium 136 L (137-145) mmol/L Potassium 5.5 H (3.5-5.1) mmol/L Chloride 92 L (98-107) mmol/L Carbon Dioxide 37 H (22-30) mmol/L Anion Gap 12.7 (5-15) MEQ/L BUN 30 H (9-20) mg/dL Creatinine 1.00 (0.66-1.25) mg/dL Estimated GFR > 60.0 ML/MIN Glucose 106 (74-106) mg/dL Calcium 8.6 (8.4-10.2) mg/dL Multi-Disciplinary Progress Notes: Multi-Disciplinary Progress Notes 10/02/22 15:07 Case Management Note by Emily Donis ROLLATOR ORDERED THRU [facility] EM[facility] USING [facility] Initialized on 10/02/22 15:07 - END OF NOTE 10/02/22 12:37 Case Management Note by Emily Donis S/W PATIENT ABOUT PLANS AT [place]. PATIENT OPEN TO CONSIDERING A NURSING BUT PATIENT ABLE TO AMBULATE 70 FEET WITH ROLLATOR. MEDICAID WILL LIKELY SAY PATIENT NEEDS MORE SUPERVISION THEN ACUTE REHAB AT THIS TIME. PATIENT REPORTS HE LIVES WITH SEVERAL OTHER ADULTS AND SOMEONE WILL BE ABLE TO ASSIST HIM AT HOME. S/W FAMILY MEMBER RISHI SCHAFER- SHE REPORTS THERE IS ALWAYS SOMEONE AROUND THAT CAN HELP HIM. WILL SEND IN FOR ROLLATOR FOR PATIENT. WILL ALSO TRY TO SET UP [facility] HOWEVER IT IS DIFFICULT TO FIND AN AGENCY THAT TAKES HIS INSURANCE AND SERVICES [place]. REFERRAL SENT TO [facility]. [facility] HAS A NEW FREE HOME BASED PROGRAM FOR [facility] RESIDENTS SIMILAR TO [facility]- WILL REACH OUT TO LEO BENNETT ([facility]) TO SEE IF PATIENT IS APPROPRIATE FOR THIS SERVICES. CALLED AND LM- ALSO SENT EMAIL. PATIENT AGREEABLE TO REFERRALS SENT TO BOTH GENERATIONS AND THE HOME BASED PROGRAM. ACO UNABLE TO SERVICE PATIENT HIS PCP IS LATASHA URENA. PATIENT PLANS TO RETURN HOME WITH FAMILY ASSISTANCE AT THIS TIME S/W [facility], [facility], [facility]- ALL UNABLE TO SERVICE PATIENT. Initialized on 10/02/22 12:37 - END OF NOTE 10/01/22 19:17 OT Plan of Care Note by Napoleon(Rachel#[id number]),Deloris OT Eval OT Inpatient Eval and POC Start: 10/01/22 07:40 Freq: ONCE Status: Active Protocol: Created 10/01/22 07:40 KW (Rec: 10/01/22 07:40 KW [id number]) Document 10/01/22 19:06 AL (Rec: 10/01/22 19:17 AL [id number]) OT Evaluation Subjective MR. CAAL WAS FOUND SITTING UP IN BED. STATES HE IS FEELING A LOT BETTER TODAY THAN HE HAS IN THE LAST SEVERAL DAYS AND THAT HIS BIGGEST COMPLAINT IS THE WEAKNESS IN HIS LEGS. Pertinent Past Medical History LONG HISTORY OF SMOKING 2-3 PPD, COPD EXACERBATION WITH ACUTE HYPOXIC RESP FAILURE; RECENTLY WAS ADMITTED TO [facility] D/T PNUEMONIA AND COMPLETED ROUND OF ANTIBIOTIC AND STEROIDS AND D/C TO HOME. HE WAS THEN READDMITTED TO [facility] A FEW DAYS LATER FOR CONTINUED COMPLAINTS OF WEAKNESS AND DIFFICULTY BREATHING. Prior Level of Function LIVES IN BASEMENT OF HOME THAT HE SHARES WITH [facility] WHOE ALSO PROVIDES ALL TRANSPORTATION AND MOST MEAL ASSIST. HAS 2 STEPS TO ENTER HOME AND THEN 4-5 TO BASEMENT WHERE HE RESIDES. HAS WALK-IN SHOWER WITH [employer]. HE PREFERS TO SIT AT KITCHEN TABLE IN CHAIR MOST OF TIME. 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 Equipment at Home Prior to Admission Cane Home Setup [id number],Standard Height Toilet,Grab Bar,Stairs Date 10/01/22 Feeding WFL Grooming WFL Comment INDEPENDENT AFTER SET-UP Bathing Impaired Comment MIN ASSIST D/T DECREASED STRENGTH AND ENDURANCE Dressing Impaired Comment WAS ABLE TO BRANDIE/DOFF SOCKS WHILE SITTING UP IN BED. STATES HE CAN DO INDEPENDENTLY HOWEVER GETS FATIGUED AND REQ REST BREAKS Toileting Impaired Comment SBA FOR SAFETY IADLS (If indicated) Homemaking,etc Impaired Bed Mobility WFL Range of Motion WFL Coordination WFL Functional Strength 4-/5 BUE GROSS MMT Functional Endurance FAIR FOR 20 MIN ADL Cognition A & O X 4 Pain NO PAIN REPORTED OT Plan Of Care Date of Evaluation 10/01/22 Treatment Diagnosis COPD EXAC; ACUTE HYPOXIC RESP FAILURE Precaution/Orders as written OT EVAL AND TX Teaching Recipient Patient Patient is Aware of Diagnosis and Yes Prognosis Patient is receptive to Plan of Care and Yes contributory towards OT goals Functional Problem List DECREASED OVERALL FUNCTIONAL STRENGTH, DECREASED BREATHING EFFICIENCY, ADL/IADL IMPAIRMENT, FUNCTIONAL MOBILITY IMPAIREMENT Therapuetic Interventions THERAPUETIC EXERCISE AND ACTIVITY Functional Goals of Treatment 1) MR. CAAL WILL BE INDEPENDENT WITH SPONGE BATH AND DRESSING AFTER SET-UP WHILE AT BEDSIDE. 2) MR. CAAL WILL BE INDEPENDENT WITH ALL OT HEPS AND D/C RECOMMEDATIONS FOR A.E ./DME/ ENERGY CONSERVATION/ DIAPHRAGMATIC BREATHING, AND HEPS. Frequency/Duration 5X/WK Rehabilitation Potential for Goals/ Excellent Barriers to Progress Discharge Recommendations/Plan MR. CAAL WOULD BENEFIT TO BE D/C TO HOME AT [facility] ONCE HE DEMO. GOOD SAFETY WITH FUNCTIONAL MOBILITY/TRANSFERS Initialized on 10/01/22 19:17 - END OF NOTE Assessment/Plan (1) COPD exacerbation Current Visit: Yes Status: Acute Assessment & Plan: 57 y/o M with h/o COPD, HTN, tobacco dependence, here with COPD exacerbation. ## COPD exacerbation - with acute hypoxic respiratory failure. No pneumonia on CXR, and no purulent sputum. Recently completed course of antibiotics for pneumonia, and I suspect just needed prolonged steroid taper because of his severe COPD. Continues to improve today, with no further wheezing on exam, and better air movement overall. Weaned to 3 L, but unable to get to room air. Given his frequent COPD exacerbations, I suspect he might need home oxygen. - continue SoluMedrol 60 mg IV daily - cont PRN DuoNeb q4h - wean oxygen to maintain SpO2 91-94% If unable to wean off completely, will plan for home oxygen ## Hyperkalemia persistent today despite getting Veltassa yesterday. Give Kayexalate 15 g p.o. x1 - repeat BMP in AM ## Leg weakness - suspect due more to overall deconditioning after frequent hospitalizations. However, was able to walk 140 ft with min assist to contact- guard assist. However, he will need a rollator. Continue PT and OT Order home rollator ## Hypertension - blood pressure overall controlled but running a little high due to holding lisinopril. Continue holding lisinopril as above for hyperkalemia Consider adding amlodipine if blood pressure remains elevated ## Tobacco dependence - continue nicotine patch. Code Status: Full Code Prophylaxis: Lovenox 40 Dispo: Unfortunately no options for assisted for patient. We will plan for home with support and perhaps home health services if available. Entirety of encounter took place via telemedicine, to which patient consented. Code(s): J44.1 - CHRONIC OBSTRUCTIVE PULMONARY DISEASE W (ACUTE) EXACERBATION (2) Respiratory failure Current Visit: Yes Status: Acute Qualifiers: Chronicity: chronic Respiratory failure complication: hypoxia Qualified Code(s): J96.11 - Chronic respiratory failure with hypoxia Code(s): J96.90 - RESPIRATORY FAILURE, UNSP, UNSP W HYPOXIA OR HYPERCAPNIA (3) Hypertension Current Visit: Yes Status: Acute Qualifiers: Hypertension type: primary hypertension Qualified Code(s): I10 - Essential (primary) hypertension Code(s): I10 - ESSENTIAL (PRIMARY) HYPERTENSION (4) Tobacco dependence Current Visit: Yes Status: Acute Code(s): F17.200 - NICOTINE DEPENDENCE, UNSPECIFIED, UNCOMPLICATED
[2022-10-02] MEDS: NICODERM CQ 14 MG TOP SCH (22:08)
[2022-10-03] MEDS: DUONEB 0.5-3 MG/3 ml Neb IH PRN ×2 (05:38→19:40)
[2022-10-03] MEDS: Spiriva 18 Mcg/Cap Inhaler IH SCH (05:53)
[2022-10-03 06:00] LABS: Hematocrit 45.9 % (42-50); Hemoglobin 14.4 g/dL (12.5-18.0); Mean Cell Volume 98.5 fL (78-100); Mean Corpuscular Hemoglobin 30.9 pg (26-32); Mean Corpuscular Hgb Concent. 31.4 g/dL (32-36); Mean Platelet Volume 10.8 fL (7.5-11.0); Platelet Count 221 x10^3/uL (150-450); Red Blood Count 4.66 x10^6/uL (4.1-5.6); Red Cell Distribution Width 12.6 % (11.5-14.0); White Blood Count 14.9 x10^3/uL (4.0-10.5)
[2022-10-03 06:12] LABS: ANION GAP 9.3 MEQ/L (5-15); BLOOD UREA NITROGEN 29 mg/dL (9-20); CHLORIDE 94 mmol/L (98-107); Calcium 8.5 mg/dL (8.4-10.2); Carbon Dioxide 38 mmol/L (22-30); Creatinine 1 0.85 mg/dL (0.66-1.25); EST GLOMERULAR FILTRATION RATE > 60.0 ML/MIN; Glucose 111 mg/dL (74-106); Potassium 4.9 mmol/L (3.5-5.1); SODIUM 136 mmol/L (137-145)
[2022-10-03] MEDS: MORPHINE SULFATE 2 MG INJ IV PRN ×2 (10:36→17:57)
[2022-10-03] MEDS: PROTONIX 40 MG IV IV SCH (11:26)
[2022-10-03] MEDS: solu-MEDROL 60 MG, Sterile H2O 10 ml 2 ML IV SCH ×2 (11:26)
[2022-10-03] MEDS: Zocor 10MG PO SCH (11:27)
[2022-10-03] MEDS ORDERED: NORVASC 5 MG PO ONE (12:08)
--- NOTE | 2022-10-03 12:08 | PCM.NOTE ---
Date and Time: 10/03/22 1201 Subjective Assessment: No acute events overnight. Patient noted that his breathing was doing better, back to his baseline. We were arranging for him to be discharged to home with some home health services from the community. However, when attempted to stand up, he required moderate to max assist to sit, but was unable to walk due to fear of falling. Yesterday, he had refused therapy, but the day before he had walked 70 ft x 2. - Review of Systems Respiratory: Short Of Breath Neurological: Focal Weakness All Other Systems: Reviewed and Negative Objective Exam General Appearance: no apparent distress Neurologic Exam: alert, oriented x 3, other (Mildly anxious) Skin Exam: No rash Eye Exam: eyes nml inspection Respiratory Exam: other (Speaking normally, in full sentences with no prolonged expiratory phase, although has very mild end expiratory wheezing anteriorly. On 2 L oxygen by nasal cannula.) Cardiovascular Exam: regular rate/rhythm, No murmur, No edema Gastrointestinal/Abdomen Exam: soft, No tenderness, No distention OBJECTIVE DATA Vital Signs: Vital Signs - 24 hr Temp Pulse Resp BP Pulse Ox 10/03/22 07:44 96.9 F 91 H 18 147/94 92 L 10/03/22 05:38 77 18 92 L 10/03/22 04:00 98.1 F 80 28 H 157/88 92 L 10/03/22 00:00 98.0 F 79 24 141/86 93 L 10/02/22 20:00 98.2 F 101 H 21 134/88 92 L 10/02/22 19:14 94 H 20 91 L 10/02/22 16:00 97.3 F 69 20 151/90 94 L Pain Assessment - Last Documented Pain Intensity 10 Pain Scale Used 0-10 Pain Scale Intake and Output: Intake & Output 10/01/22 10/02/22 10/03/22 10/04/22 11:59 11:59 11:59 11:59 Intake Total 2100 2740 2540 Output Total 1250 3350 1500 Balance 850 -610 1040 Weight 92.6 kg 92.4 kg 96 kg Lab Results: Lab Results-Last 24 Hours 10/03/22 10/03/22 Range/Units 05:43 05:43 WBC 14.9 H (4.0-10.5) x10^3/uL RBC 4.66 (4.1-5.6) x10^6/uL Hgb 14.4 (12.5-18.0) g/dL Hct 45.9 (42-50) % MCV 98.5 (78-100) fL MCH 30.9 (26-32) pg MCHC 31.4 L (32-36) g/dL RDW 12.6 (11.5-14.0) % Plt Count 221 (150-450) x10^3/uL MPV 10.8 (7.5-11.0) fL Sodium 136 L (137-145) mmol/L Potassium 4.9 (3.5-5.1) mmol/L Chloride 94 L (98-107) mmol/L Carbon Dioxide 38 H (22-30) mmol/L Anion Gap 9.3 (5-15) MEQ/L BUN 29 H (9-20) mg/dL Creatinine 0.85 (0.66-1.25) mg/dL Estimated GFR > 60.0 ML/MIN Glucose 111 H (74-106) mg/dL Calcium 8.5 (8.4-10.2) mg/dL Multi-Disciplinary Progress Notes: Multi-Disciplinary Progress Notes 10/03/22 11:03 Physical Therapy Note by Christian(L#[id number]),Deloris PT. WAS SEEN BY P.T. THIS A.M. REFUSED TO AMBULATE W/ P.T. X 3 YESTERDAY D/T C/O FATIGUE AND ABD PN D/T CONSTIPATION. TODAY, PT. C/O R RIB PN AT 8/10. BOWELS MOVED LAST NIGHT AND HELP ABD. PT. C/O LE WEAKNESS AND NUMBNESS BILATERAL LLS. PT. AGREEABLE TO WORK W/ P.T. IN BED UPON P.T. ARRIVAL TO ROOM. ON 2 L O2. O2 SATS 94% AT REST. PERFORMED SUPINE TO SIT W/ MOD-MAX ASSIST. PT. REPORTS NOT ABLE TO MOVE R LE INTO ABD TO SIT ON EDGE OF BED. ASSISTED PT. W/ LE MOVEMENT AND THEN REQUIRED MOD-MAX ASSIST TO SIT UPRIGHT. PT. ABLE TO SIT ON SIDE OF BED W/ SBA. PT. ABLE TO PERFORM LAQ ~ 30% RANGE BUT REPORTS NOT ABLE TO PERFORM ANKLE AROM D/T NUMBNESS AND WEAKNESS. ATTEMPTED SIT TO STAND W/ ROLLATOR IN FRONT OF PT. AND PT. PERFORMED W/ MAX ASSIST X 1 BUT THEN STATED HE WAS FEARFUL OF FALLING AND ASKED TO SIT BACK DOWN. AR MANAGER ASKED TO HELP AND PT. PERFORMED SIT TO STAND AND PIVOT TO CHAIR W/ MOD-MAX ASSIST X 2 AND ROLLATOR. PT. SAT IN CHAIR W/ MINIMAL CONTROL AND UNSAFE FASHION. O2 SATS DECREASED TO 88% ON 3 L W/ TRANSFER. ATTEMPTED TO STAND AGAIN W/ EMILY IN UR AND OT PRESENT. SATS IMPROVED TO 92% ON RA. PT. PERFORMED SIT TO STAND ON THIS ATTEMPT W/ MOD-MAX ASSIST X 2 AND REPORTS NOT ABLE TO MOVE LES TO WALK AND STILL C/O LL NUMBNESS. PT. STATES HE NEEDS REHAB STAY NOW D/T INABILITY TO WALK. O2 SATS DECREASED TO 87% ON RA AND O2 PLACED ON PT. AGAIN. PT. HOLD BREATH @ TIMES AND ANXIETY NOTED. WILL CONT. P.T. TOLERATED. Initialized on 10/03/22 11:03 - END OF NOTE 10/02/22 16:56 Occupational Therapy Note by Alina Wheeler OCCUPATIONAL THERAPY TREATMENT: 15:35-15:50 PATIENT REQUIRED STEP BY STEP VERBAL CUES FOR SEQUENCING TECHNIQUE FOR BED MOBILITY, HE WAS REQUESTING MORE ASSIST THEN HE REQUIRES. PATIENT COMPLETES TASK WITH SBA. HE ENGAGES IN BUE PULMONARY EXERCISES WITH IMPROVED RR (12), O2 (93%), PULSE (85). HE REPORTS MILD DIZZINESS DURING THE 4TH EXERCISE BUT MAY RELATE TO APPROPRIATE BREATHING TECHNIQUES PATIENT TYPICALLY HAS SHALLOW BREATHS AND POOR POSITION. HE RETURNS TO SUPINE WITH SBA. Initialized on 10/02/22 16:56 - END OF NOTE 10/02/22 15:07 Case Management Note by Emily Donis ROLLATOR ORDERED THRU [facility] Initialized on 10/02/22 15:07 - END OF NOTE 10/02/22 12:37 Case Management Note by Emily Donis S/W PATIENT ABOUT PLANS AT [place]. PATIENT OPEN TO CONSIDERING A NURSING BUT PATIENT ABLE TO AMBULATE 70 FEET WITH ROLLATOR. MEDICAID WILL LIKELY SAY PATIENT NEEDS MORE SUPERVISION THEN ACUTE REHAB AT THIS TIME. PATIENT REPORTS HE LIVES WITH SEVERAL OTHER ADULTS AND SOMEONE WILL BE ABLE TO ASSIST HIM AT HOME. S/W FAMILY MEMBER RISHI SCHAFER- SHE REPORTS THERE IS ALWAYS SOMEONE AROUND THAT CAN HELP HIM. WILL SEND IN FOR ROLLATOR FOR PATIENT. WILL ALSO TRY TO SET UP [facility] HOWEVER IT IS DIFFICULT TO FIND AN AGENCY THAT TAKES HIS INSURANCE AND SERVICES [place]. REFERRAL SENT TO [facility]. [facility] HAS A NEW FREE HOME BASED PROGRAM FOR [facility]AR TO [facility]- WILL REACH OUT TO LEO BENNETT ([facility] [employer]) TO SEE IF PATIENT IS APPROPRIATE FOR THIS SERVICES. CALLED AND LM- ALSO SENT EMAIL. PATIENT AGREEABLE TO REFERRALS SENT TO BOTH GENERATIONS AND THE HOME BASED PROGRAM. ACO UNABLE TO SERVICE PATIENT HIS PCP IS LATASHA URENA. PATIENT PLANS TO RETURN HOME WITH FAMILY ASSISTANCE AT THIS TIME S/W [facility], [facility], [facility]- ALL UNABLE TO SERVICE PATIENT. Initialized on 10/02/22 12:37 - END OF NOTE Assessment/Plan (1) COPD exacerbation Current Visit: Yes Status: Acute Assessment & Plan: 57 y/o M with h/o COPD, HTN, tobacco dependence, here with COPD exacerbation. ## COPD exacerbation - with acute hypoxic respiratory failure. No pneumonia on CXR, and no purulent sputum. Recently completed course of antibiotics for pneumonia, and I suspect just needed prolonged steroid taper because of his severe COPD. Continues to improve today, with no further wheezing on exam, and better air movement overall. Still requiring 2 to 3 L oxygen, and appears will need home oxygen. Overall will need steroid taper. Decrease prednisone to 40 mg for 5 days, then 20 mg for 5 more days Cont PRN DuoNeb q4h Wean oxygen to maintain SpO2 91-94% ## Hyperkalemia improved after Kayexalate yesterday. Repeat BMP in AM ## Leg weakness - suspect due more to overall deconditioning after frequent hospitalizations. Initially able to walk 70 ft x 2 with min assist and a rollator. However, today, he has been doing worse, requiring mod to max assist for sit to stand and stand/pivot, unable to ambulate. Continue PT and OT Refer for SNF for rehabilitation; expect rehab stay of less than 30 days to improve his mobility Ordered home rollator ## Hypertension - blood pressure overall controlled but running a little high due to holding lisinopril. Continue holding lisinopril as above for hyperkalemia Start amlodipine 5 mg daily ## Tobacco dependence - continue nicotine patch. Code Status: Full Code Prophylaxis: Lovenox 40 Dispo: Plan for skilled rehab for debility. Expect rehab stay of less than 30 days. Entirety of encounter took place via telemedicine, to which patient consented. Code(s): J44.1 - CHRONIC OBSTRUCTIVE PULMONARY DISEASE W (ACUTE) EXACERBATION (2) Respiratory failure Current Visit: Yes Status: Acute Qualifiers: Chronicity: chronic Respiratory failure complication: hypoxia Qualified Code(s): J96.11 - Chronic respiratory failure with hypoxia Code(s): J96.90 - RESPIRATORY FAILURE, UNSP, UNSP W HYPOXIA OR HYPERCAPNIA (3) Hypertension Current Visit: Yes Status: Acute Qualifiers: Hypertension type: primary hypertension Qualified Code(s): I10 - Essential (primary) hypertension Code(s): I10 - ESSENTIAL (PRIMARY) HYPERTENSION (4) Tobacco dependence Current Visit: Yes Status: Acute Code(s): F17.200 - NICOTINE DEPENDENCE, UNSPECIFIED, UNCOMPLICATED Telemedicine Encounter - Telemedicine Encounter Telemedicine Encounter: The entirety of this encounter was performed via Telemedicine"
[2022-10-03] MEDS: NICODERM CQ 14 MG TOP SCH (23:31)
[2022-10-04 05:12] LABS: Hematocrit 46.5 % (42-50); Hemoglobin 14.7 g/dL (12.5-18.0); Mean Cell Volume 98.5 fL (78-100); Mean Corpuscular Hemoglobin 31.1 pg (26-32); Mean Corpuscular Hgb Concent. 31.6 g/dL (32-36); Mean Platelet Volume 10.8 fL (7.5-11.0); Platelet Count 219 x10^3/uL (150-450); Red Blood Count 4.72 x10^6/uL (4.1-5.6); Red Cell Distribution Width 12.6 % (11.5-14.0); White Blood Count 12.8 x10^3/uL (4.0-10.5)
[2022-10-04 05:40] LABS: ANION GAP 9.3 MEQ/L (5-15); BLOOD UREA NITROGEN 28 mg/dL (9-20); CHLORIDE 95 mmol/L (98-107); Calcium 8.3 mg/dL (8.4-10.2); Carbon Dioxide 36 mmol/L (22-30); Creatinine 1 0.81 mg/dL (0.66-1.25); EST GLOMERULAR FILTRATION RATE > 60.0 ML/MIN; Glucose 117 mg/dL (74-106); Potassium 4.1 mmol/L (3.5-5.1); SODIUM 136 mmol/L (137-145)
[2022-10-04] MEDS: DUONEB 0.5-3 MG/3 ml Neb IH PRN (06:32)
[2022-10-04] MEDS: Spiriva 18 Mcg/Cap Inhaler IH SCH (06:42)
[2022-10-04] MEDS: MORPHINE SULFATE 2 MG INJ IV PRN ×2 (07:58→16:25)
[2022-10-04] MEDS: Zocor 10MG PO SCH (09:13)
[2022-10-04] MEDS: PROTONIX 40 MG IV IV SCH (09:13)
[2022-10-04] MEDS ORDERED: NORVASC 5 MG PO SCH (10:00)
[2022-10-04] MEDS ORDERED: DELTASONE 20 MG PO SCH (10:00)
--- NOTE | 2022-10-04 14:19 | PCM.NOTE ---
Date and Time: 10/04/22 1413 Subjective Assessment: No acute events overnight. However, patient states he still feels weak. Also was complaining of bilateral back pain. Still remains on 3 L nasal cannula. However, later, when attempting to work with physical therapy, they noted a significant decline in his functional status, even before his inability to walk as well yesterday. He had difficulty with truncal control, and using his hamstrings, all marked decreases from his ability a few days ago. Patient does not report any urinary incontinence, but nurses noted that he had soiled his gown when they returning him to work with therapy. - Review of Systems Constitutional: No Fever, No Lethargy, No Malaise Eyes: No Eye Pain, No Vision Changes Respiratory: Cough, Short Of Breath Cardiac: No Chest Pain Abdominal/Gastrointestinal: No Abdominal Pain, No Nausea, No Vomiting Musculoskeletal: Back Pain Neurological: Focal Weakness Objective Exam General Appearance: no apparent distress Neurologic Exam: alert, oriented x 3, No normal mood/affect Skin Exam: No rash Respiratory Exam: other (Very mild anterior and expiratory wheezing. On 3 L nasal cannula.) Cardiovascular Exam: regular rate/rhythm, No murmur, No edema Gastrointestinal/Abdomen Exam: soft, No tenderness, No distention OBJECTIVE DATA Vital Signs: Vital Signs - 24 hr Temp Pulse Resp BP Pulse Ox 10/04/22 11:21 97.6 F 88 20 146/95 95 10/04/22 07:27 97.6 F 77 18 134/92 96 10/04/22 06:32 92 H 22 92 L 10/04/22 04:00 98.0 F 84 22 142/93 93 L 10/03/22 23:32 97.5 F 76 23 159/84 96 10/03/22 20:00 98.2 F 94 H 18 157/93 96 10/03/22 19:40 87 20 93 L 10/03/22 16:00 97.7 F 88 20 145/99 91 L Pain Assessment - Last Documented Pain Intensity 8 Pain Scale Used 0-10 Pain Scale Intake and Output: Intake & Output 10/02/22 10/03/22 10/04/22 10/05/22 11:59 11:59 11:59 11:59 Intake Total 2740 2540 2660 Output Total 3350 1500 2550 Balance -610 1040 110 Weight 92.4 kg 96 kg 96.1 kg Lab Results: Lab Results-Last 24 Hours 10/04/22 10/04/22 Range/Units 05:05 05:05 WBC 12.8 H (4.0-10.5) x10^3/uL RBC 4.72 (4.1-5.6) x10^6/uL Hgb 14.7 (12.5-18.0) g/dL Hct 46.5 (42-50) % MCV 98.5 (78-100) fL MCH 31.1 (26-32) pg MCHC 31.6 L (32-36) g/dL RDW 12.6 (11.5-14.0) % Plt Count 219 (150-450) x10^3/uL MPV 10.8 (7.5-11.0) fL Sodium 136 L (137-145) mmol/L Potassium 4.1 (3.5-5.1) mmol/L Chloride 95 L (98-107) mmol/L Carbon Dioxide 36 H (22-30) mmol/L Anion Gap 9.3 (5-15) MEQ/L BUN 28 H (9-20) mg/dL Creatinine 0.81 (0.66-1.25) mg/dL Estimated GFR > 60.0 ML/MIN Glucose 117 H (74-106) mg/dL Calcium 8.3 L (8.4-10.2) mg/dL Radiology Exams: Radiology Procedures Category Date Time Status MRI BRAIN W/O CONTRAST [MRI] Routine Exams 10/04/22 11:44 Ordered MRI C-SPINE W & WO CONTRAST [MRI] Routine Exams 10/04/22 11:44 Ordered MRI L-SPINE W & W/O CONTRAST [MRI] Routine Exams 10/04/22 11:44 Ordered MRI T-SPINE W & W/O CONTRAST [MRI] Routine Exams 10/04/22 11:44 Ordered Multi-Disciplinary Progress Notes: Multi-Disciplinary Progress Notes 10/04/22 13:07 Occupational Therapy Note by Alina Wheeler Occupational Therapy Note: 11:10-11:35 Upon OT arrival, patient sitting up in chair with BLE extensory synergy. He reports that his legs are "paralyzed today" and he required "alot" of assistance to transfer to chair today. OT provided education on UE and trunk strengthening as it would be important in the rehab process specifically due to BLE weakness. Patient was agreeable to this. Discussion then held with RN and PT regarding patient's regression, distal to proximal loss of strength and control. OT retrieved red theraband and placed patient's bilateral LE on floor to facilitate 90-90-90 position with OT providing intermittent min assist for LE to stay in correct position. He then engages in BUE strengthening exercises with verbal cues on technique, he is noted with intermittent LOB in supported sitting to left side. He then engaged in priming task for core strength with trunk flexion and extension with right side drifting (poor left abdominal strength). He then needed to utilize urinal with forward LOB and spilling of urinal, poor sitting posture to complete voiding task with urinal requiring assist with hygiene. At end of session, he was repositioned in the chair with BLE elevated on stool. OT recommends further neuro testing and assessment. Initialized on 10/04/22 13:07 - END OF NOTE 10/04/22 12:22 Case Management Note by Vaughn Donis S/W DR. BARKER-PATIENT WILL NOT DC TO [facility] TODAY- NEEDS ADDITIONAL TESTING THAT CANNOT BE COMPLETED UNTIL FRIDAY (TOTAL OF 4 MRIS). HE ANTICIPATED PATIENT BEING HERE THRU THE WEEKEND UNLESS HE DECLINES AND NEEDS TRANSFER TO HIGH LEVEL OF PA RE. ABDIRIZAK VOSS-UPDATED THAT PATIENT WILL HAVE MRIS TODAY, IF PATIENT REMAINS STABLE THRU THE WEEKEND- WILL HAVE ADDITIONAL MRIS ON FRIDAY. PATIENT NOT LIKELY TO COME TODAY-WILL UPDATE THEM ON FRIDAY. THEY REPORT AUTH STILL PENDING AT THIS TIME Initialized on 10/04/22 12:22 - END OF NOTE 10/04/22 11:13 Physical Therapy Note by Christian(L#[id number]),Deloris PT. SEEN BY [facility]. THIS A.M. REPORTS MILD C/O RIB PN. STATES HE NEEDS TO GET TO [facility] FOR B.M. 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 NOTED R LE POSITIONED IN EXTENSOR TONE PATTERN IN BED W/ R ANKLE PF/INV. PT. REQUIRED MAX ASSIST TO SLIDE LES TO SIDE OF BED AND THEN MOD-MAX ASSIST TO PUSH TRUNK TO UPRIGHT. PT. REQUIRED USE OF HIS UES TO MAINTAIN TRUNK CONTROL TODAY TRUNK SEEMS TO BE WEAKER. ATTEMPTED TRANSFER TO [facility] X 2; ANOTHER RN CAME IN TO ASSIST. COMPLETED TRANSFER TO BEDSIDE [facility] W/ MAX ASSIST X 3. LE WEAKNESS AND POOR COORDINATION NOTED. PT. ATTEMPTED B.M. WITHOUT SUCCESS AND THEN ASSISTED TO BEDSIDE CHAIR W/ MAX ASSIST X 3. PT. HAD DIFFICULTY ISOLATING BILATERAL HAMSTRINGS TO SIT UPRIGHT IN CHAIR. PT. MAY NEED NEURO CONSULT AND TESTING NEURO SX SEEM TO BE WORSENING TO R/O UPPER MOTOR NEURON ISSUE VS PSYCHOSOMATIC ORIGIN .DISCUSSED W/ TRINI ROSARIO RN AND VAUGHN DONIS IN [facility].R. WILL CONT. P.T. TOLERATED. Initialized on 10/04/22 11:13 - END OF NOTE 10/04/22 09:30 Case Management Note by Vaughn Donis PAPERWORK COMPLETE- PATIENT APPROVED FOR SHORT TERM REHAB STAY. COPIES PLACED ON CHART AND FAXED TO [facility]. S/W PATIENT THIS AM- HE CONTINUES TO PLAN TO DC TO [facility] FOR SHORT TERM REHAB ONCE [facility] RECEIVES APPROVAL FROM INSURANCE Initialized on 10/04/22 09:30 - END OF NOTE Assessment/Plan (1) COPD exacerbation Current Visit: Yes Status: Acute Assessment & Plan: 57 y/o M with h/o COPD, HTN, tobacco dependence, here with COPD exacerbation. ## Progressive ascending paralysis initially presenting yesterday as decreased leg strength from where he was working physical therapy earlier in the week, perhaps due to some mental health issues. However, now with proximal leg and trunk weakness, and possibly urinary incontinence. 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 Consult telemetry neurology Obtain lumbar puncture, with CSF studies for protein, glucose, cell count, differential, and culture Obtain MRI brain and spine for alternate etiologies If unable to get these in a timely fashion at [facility], may need to be transferred out for a higher level of care Continue PT and OT ## COPD exacerbation - with acute hypoxic respiratory failure. No pneumonia on CXR, and no purulent sputum. Recently completed course of antibiotics for pneumonia, and I suspect just needed prolonged steroid taper because of his severe COPD. Improved today, moving air better overall, and minimal wheezing. Remains on 3 L oxygen. Continue prednisone taper, 40 mg for 4 more days, then 20 mg for 5 days Cont PRN DuoNeb q4h Wean oxygen to maintain SpO2 91-94% ## Hyperkalemia resolved today. Repeat BMP in AM ## Hypertension - blood pressure controlled this morning. Lisinopril held due to hyperkalemia. Continue amlodipine 5 mg daily ## Tobacco dependence - continue nicotine patch. Code Status: Full Code Prophylaxis: Lovenox 40 Dispo: Pending. Plan for discharge to SNF on hold because of a sending paralysis. Pending neurology evaluation, may need transfer to higher level of care. Entirety of encounter took place via telemedicine, to which patient consented. Code(s): J44.1 - CHRONIC OBSTRUCTIVE PULMONARY DISEASE W (ACUTE) EXACERBATION (2) Respiratory failure Current Visit: Yes Status: Acute Qualifiers: Chronicity: chronic Respiratory failure complication: hypoxia Qualified Code(s): J96.11 - Chronic respiratory failure with hypoxia Code(s): J96.90 - RESPIRATORY FAILURE, UNSP, UNSP W HYPOXIA OR HYPERCAPNIA (3) Hypertension Current Visit: Yes Status: Acute Qualifiers: Hypertension type: primary hypertension Qualified Code(s): I10 - Essential (primary) hypertension Code(s): I10 - ESSENTIAL (PRIMARY) HYPERTENSION (4) Tobacco dependence Current Visit: Yes Status: Acute Code(s): F17.200 - NICOTINE DEPENDENCE, UNSPECIFIED, UNCOMPLICATED Telemedicine Encounter - Telemedicine Encounter Telemedicine Encounter: The entirety of this encounter was performed via Telemedicine"
--- NOTE | 2022-10-04 17:17 | PCM.DS ---
Discharge Summary Date of Admission: 10/01/22 12:05 Date of Discharge: 10/04/22 Admitting Physician: PRICILA SANCHEZ Consults: Consults on Case 10/04/22 11:56 Consult Tele-Health [Tele-Health Consult] ROUTINE Primary Care Provider: LATASHA URENA Allergies Allergies No Known Drug Allergies Allergy (Unverified 09/29/22 19:43) Hospital Summary - Hospital Course Hospital Course: 57-year-old man with history of COPD and tobacco abuse, who presented with cough and dyspnea after recent pneumonia. He does at home monitor course of steroids, but after they completed, he began to have more dyspnea. He was admitted for a COPD exacerbation. Chest x-ray showed no further pneumonia, and he had no f urther sputum production, so his antibiotics were stopped. He was placed on bronchodilators and steroids, slowly improving. He continued to require 3 L of oxygen, but overall has been improving. He walked 140 ft with physical therapy, although he had frequent stops for dyspnea. We were arranging for him to go home with oxygen with home health services to continue some PT. However, patient had a sudden change in his physical activity levels. He was unable to ambulate with PT on 10/03. Been on 10/04, he had worsening truncal strength, inability to hold his up in bed, and evidence of urinary incontinence. Attempted to get MRI, but patient was unable to lay still, and we could only get partial MRI done today, and no further done until 10/07. We were also planning on having [facility] do a lumbar puncture, but will have to send out labs and would not get results until sometime next week. As such, decided to transfer patient to [facility] for evaluation by neurology for possible Guillain-Guillen syndrome. Patient's vital signs remained hemodynamically stable. He remains on 3 L with no signs of we akening respiratory effort. He had no evidence of arm weakness. Entirety of encounter took place via telemedicine. Patient consented to telemedicine. Greater than 30 minutes managing discharge. - Vitals & Intake/Output Vital Signs: Vital Signs Temperature 97.5 F 10/04/22 15:26 Pulse Rate 88 10/04/22 15:26 Respiratory Rate 20 10/04/22 15:26 Blood Pressure 146/95 10/04/22 15:26 O2 Sat by Pulse Oximetry 95 10/04/22 15:26 Intake & Output: Intake & Output 10/02/22 10/03/22 10/04/22 10/05/22 11:59 11:59 11:59 11:59 Intake Total 2740 2540 2660 360 Output Total 3350 1500 2550 Balance -610 1040 110 360 Weight 92.4 kg 96 kg 96.1 kg 96.1 kg - Lab Result Diagrams: 10/04/22 05:05 10/04/22 05:05 Lab Results-Last 24 Hrs: Lab Results-Last 24 Hours 10/04/22 10/04/22 Range/Units 05:05 05:05 WBC 12.8 H (4.0-10.5) x10^3/uL RBC 4.72 (4.1-5.6) x10^6/uL Hgb 14.7 (12.5-18.0) g/dL Hct 46.5 (42-50) % MCV 98.5 (78-100) fL MCH 31.1 (26-32) pg MCHC 31.6 L (32-36) g/dL RDW 12.6 (11.5-14.0) % Plt Count 219 (150-450) x10^3/uL MPV 10.8 (7.5-11.0) fL Sodium 136 L (137-145) mmol/L Potassium 4.1 (3.5-5.1) mmol/L Chloride 95 L (98-107) mmol/L Carbon Dioxide 36 H (22-30) mmol/L Anion Gap 9.3 (5-15) MEQ/L BUN 28 H (9-20) mg/dL Creatinine 0.81 (0.66-1.25) mg/dL Estimated GFR > 60.0 ML/MIN Glucose 117 H (74-106) mg/dL Calcium 8.3 L (8.4-10.2) mg/dL Micro Results-Entire Visit: Microbiology 09/29/22 20:30 Blood Culture - Final Blood 09/29/22 20:15 Blood Culture - Final Blood - Procedures and Test Procedures and Tests throughout Hospitalization: Therapy Orders & Screens 09/29/22 20:04 Respiratory Therapy Assessment DAILY Comment: 09/29/22 23:27 Oxygen Nasal Cannula 2 lpm Comment: 09/30/22 02:04 RT Screen per Nursing Assess ONCE Comment: Protocol Order Physician Instructions: Greater than 3 points order RT Admission Screen Reason For Exam: Triggered on Admission Diagnosis: COPD exacerbation, acute hypoxic respiratory failure Diagnosis: COPD exacerbation, acute hypoxic respiratory failure Pneumonia: No Home O2: No Asthma: Yes CHF: No Home CPAP/BIPAP: No Home Nebs/MDI: Yes Total Points: 9 Smoking Cessation Education ONCE Comment: Diagnosis: COPD exacerbation, acute hypoxic respiratory failure Smoking Status: Heavy tobacco smoker How long have you smoked: 51 years Have you smoked in the past 12 months: Yes Approximately how many cigarettes per day: Per pt cousin, at least 60 per day Do you dip or chew tobacco: No 10/01/22 07:40 PT Eval & Treat (MD Order) ONCE Reason for Eval:: impaired mobility Diagnosis: COPD exacerbation, acute hypoxic respiratory failure OT Eval and Treat (MD Order) ONCE Comment: Physician Instructions: Reason For Exam: 10/02/22 07:00 Respiratory MDI UD Comment: SPIRIVA Diagnosis: COPD exacerbation, acute hypoxic respiratory failure Discharge Exam General Appearance: no apparent distress Neurologic Exam: alert, oriented x 3, motor deficits (Unable to lift legs, or hold himself up in bed) Eye Exam: EOMI, eyes nml inspection Respiratory Exam: other (Very mild anterior end expiratory wheezing. On 3 L nasal cannula) Cardiovascular Exam: regular rate/rhythm, No murmur, No edema Gastrointestinal/Abdomen Exam: soft, No tenderness, No distention Final Diagnosis/Problem List - Final Discharge Diagnosis/Problem (1) COPD exacerbation Current Visit: Yes Status: Acute Code(s): J44.1 - CHRONIC OBSTRUCTIVE PULMONARY DISEASE W (ACUTE) EXACERBATION (2) Respiratory failure Current Visit: Yes Status: Acute Code(s): J96.90 - RESPIRATORY FAILURE, UNSP, UNSP W HYPOXIA OR HYPERCAPNIA (3) Hypertension Current Visit: Yes Status: Acute Code(s): I10 - ESSENTIAL (PRIMARY) HYPERTENSION (4) Tobacco dependence Current Visit: Yes Status: Acute Code(s): F17.200 - NICOTINE DEPENDENCE, UNSPECIFIED, UNCOMPLICATED (5) Ascending paralysis Current Visit: Yes Status: Acute Code(s): 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 - Discharge Disposition: DC TO [facility] Condition: Fair Prescriptions: New Prednisone 20 mg [Deltasone 20 mg] 20 mg PO DAILY #15 tablet Albuterol/Ipratropium 3ml Neb* [DUONEB 0.5-3 MG/3 ml Neb] 3 ml IH Q4HPRN OR N PRN Reason: Shortness Of Breath/Wheezing Budesonide/Formoterol Fumarate [Budesonide-Formoterol 160-4.5] 2 puff IH BID #1 inhaler Amlodipine Besylate 5 mg [Norvasc 5 mg] 10 mg PO QAM tablet Continue Tiotropium Raymond Inhaler [Spiriva 18 Mcg/Cap Inhaler] 1 puff IH DAILY Lisinopril 10 mg [Zestril 10 MG] 10 mg PO DAILY SUMAtriptan succinate [Imitrex 50 mg] 50 mg PO DAILY PRN PRN PRN Reason: migraines Loperamide HCl 2 mg [Imodium 2 mg] 2 mg PO DAILY PRN PRN PRN Reason: Diarrhea Atorvastatin Calcium [Lipitor] 10 mg PO DAILY Haloperidol Decanoate [Haldol Decanoate 50] 0 mg IM UD Follow up with: LATASHA URENA, DOG BEHAVIORIST [Primary Care Provider] -
[2022-10-04 18:12] VITALS: BP 134/95; PULSE 96; O2SAT 94
[2022-10-05] MEDS ORDERED: Protonix 40MG Tablet PO SCH (10:00)
== END 2022-10-04 18:33 | disposition home or self-care (01) | DRG 190 ==
LOC: ED 19:37 → MED SURG 23:10 → OBSVTOIN 10-01 12:05
PROVIDERS: ADMIT Family Medicine; ATTEND Family Medicine
DX: J44.1 Chronic obstructive pulmonary disease with (acute) exacerbation (principal); J96.90 Respiratory failure, unspecified, unspecified whether with hypoxia or hypercapnia; I10 Essential (primary) hypertension; F17.200 Nicotine dependence, unspecified, uncomplicated; E87.5 Hyperkalemia; M54.9 Dorsalgia, unspecified; Z79.899 Other long term (current) drug therapy; Z87.01 Personal history of pneumonia (recurrent); Z20.828 Contact with and (suspected) exposure to other viral communicable diseases
CPT/HCPCS: 0241U; 36000; 36415; 71045; 80048; 80053; 83605; 83735; 83880; 84484; 85025; 85027; 87040; 93005; 93041; 93268; 94640; 94760; 94762; 96365; 96367; 96374; 96375; 97110; 97161; 97165; 97530; 99285; J0456; J0696; J2270; J2405; J2930; Q3014; A9270-GY; G0378